=== PATIENT | male | born 1950 | race Caucasian/White ===

== ENCOUNTER → 2019-09-22 | Outpatient (CLI) | payer MEDICARE, BC, SELFPAY | PROVIDERS: Family Provider Family Medicine; PCP Family Medicine; Visit Provider Family Medicine | DX: M47.816 Spondylosis without myelopathy or radiculopathy, lumbar region (principal); M54.41 Lumbago with sciatica, right side | CPT/HCPCS: 72100 ==

== ENCOUNTER 2019-12-15 16:09 | Outpatient (CLI) | payer MEDICARE, BC, SELFPAY ==
--- NOTE | 2019-12-15 16:30 | USCV_ITS ---
Itz Wang Age: 68 Gender: M : 1950 Exam Date: 12/15/2019 16:35 Ordering Phys: Shelbie Bradshaw Technologist: Ingrid Woodard Exam Location: [facility] [place] Indication: sob BP: / HR: 69 Rhythm: Sinus Technical Quality: Adequate MEASUREMENTS (Male / Female) Normal Values 2D ECHO LV Diastolic Diameter PLAX 4.2 cm 4.2 - 5.9 / 3.9 - 5.3 cm LV Systolic Diameter PLAX 3.1 cm IVS Diastolic Thickness 1.1 cm 0.6 - 1.0 / 0.6 - 0.9 cm IVS Systolic Thickness 1.5 cm LVPW Diastolic Thickness 0.9 cm 0.6 - 1.0 / 0.6 - 0.9 cm LVPW Systolic Thickness 1.1 cm LVOT Diameter 2.0 cm LV Ejection Fraction MOD 2C 65.2 % LV Ejection Fraction 2C AL 65.9 % LA Diameter 2.9 cm LA Width 3.1 cm LA Height 4.0 cm RA Width 3.4 cm RA Height 3.2 cm M-MODE LV Diastolic Diameter MM 5.0 cm 4.2 - 5.9 / 3.9 - 5.3 cm LV Systolic Diameter MM 3.4 cm LV Ejection Fraction MM Teich 59.0 % IVS Diastolic Thickness MM 0.7 cm 0.6 - 1.0 / 0.6 - 0.9 cm IVS Systolic Thickness MM 1.0 cm LVPW Diastolic Thickness MM 0.6 cm 0.6 - 1.0 / 0.6 - 0.9 cm LVPW Systolic Thickness MM 1.3 cm Aortic Annulus Diameter 3.6 cm LA Ao Ratio MM 0.8 MV E Point Septal Separation 1.0 cm DOPPLER AV Peak Velocity 104.0 cm/s LVOT Peak Velocity 92.0 cm/s AV Area Cont Eq vti 2.7 cm squared AV Area Cont Eq pk 2.8 cm squared MV Peak Velocity 73.0 cm/s MV Area PHT 3.1 cm squared Mitral E to A Ratio 0.7 MV E' Velocity 6.0 cm/s Mitral E to MV E' Ratio 9.1 Mitral E to LV E' Lateral Ratio 9.0 Mitral E to LV E' Septal Ratio 9.5 TR Peak Velocity 217.0 cm/s TR Peak Gradient 18.9 mmHg Right Atrial Pressure 3.0 mmHg Pulmonary Artery Systolic Pressu 21.8 mmHg PV Peak Velocity 87.0 cm/s RV Acceleration Time 0.2 s FINDINGS Left Ventricle Moderately increased left ventricular cavity size. Severely decreased left ventricular systolic function. Left ventricular ejection fraction is estimated at 35 %. There appeared to be mid to distal anterior septal apical akinesis suggestive of ischemic heart disease in LAD territory.Grade I/IV diastolic dysfunction (abnormal relaxation filling pattern), normal to mildly elevated filling pressures. Right Ventricle The right ventricle is normal in size and function. Right Atrium The right atrium is normal in size. Left Atrium The left atrium is normal in size. Mitral Valve Structurally normal mitral valve without significant stenosis or prolapse. There is no mitral regurgitation. Aortic Valve Structurally normal aortic valve without significant sclerosis or stenosis. There is no aortic regurgitation. Tricuspid Valve Structurally normal tricuspid valve without significant stenosis or regurgitation. Pulmonary artery systolic pressure is normal. Pulmonic Valve Mild pulmonary valve regurgitation. Pericardium Normal pericardium without effusion. Aorta Normal ascending aorta dimension. CONCLUSIONS 1-Moderately increased left ventricular cavity size. Severely decreased left ventricular systolic function. Left ventricular ejection fraction is estimated at 35 %. There appeared to be mid to distal anterior septal apical akinesis suggestive of ischemic heart disease in LAD territory.Grade I/IV diastolic dysfunction (abnormal relaxation filling pattern), normal to mildly elevated filling pressures. 2-Mild pulmonary valve regurgitation. 3-No significant valve abnormalities. 4-There is no pericardial effusion. 5-Pulmonary artery systolic pressure is within normal limits. 6-Right atrial pressure is around 5 mm of mercury. 7-There are no prior echocardiogram studies to compare. William Sanderson MD (Electronically Signed) Final Date: 15 December 2019 20:57 S
== END 2019-12-15 16:10 | disposition home or self-care (01) ==
LOC: US 16:17
PROVIDERS: Family Provider Family Medicine; PCP Family Medicine; Visit Provider Nurse Practitioner Family
DX: I25.10 Atherosclerotic heart disease of native coronary artery without angina pectoris (principal); I37.1 Nonrheumatic pulmonary valve insufficiency
CPT/HCPCS: 93306

== ENCOUNTER → 2020-02-27 08:26 | Outpatient (BNVA) | payer MEDICARE, BC, SELFPAY | PROVIDERS: Family Provider Family Medicine; PCP Family Medicine; Visit Provider Family Medicine | DX: E78.2 Mixed hyperlipidemia (principal); J45.40 Moderate persistent asthma, uncomplicated | CPT/HCPCS: 80053; 80061 ==

== ENCOUNTER → 2020-06-08 16:24 | Outpatient (BNVA) | payer MEDICARE, BC, SELFPAY | PROVIDERS: Family Provider Family Medicine; PCP Family Medicine; Visit Provider Family Medicine | DX: Z20.828 Contact with and (suspected) exposure to other viral communicable diseases (principal) | CPT/HCPCS: 87635 ==

== ENCOUNTER → 2021-05-09 12:09 | Outpatient (BNVA) | payer MEDICARE, BC, SELFPAY | PROVIDERS: Family Provider Family Medicine; PCP Family Medicine; Visit Provider Family Medicine | DX: Z20.822 Contact with and (suspected) exposure to COVID-19 (principal); R05 Cough; R50.9 Fever, unspecified | CPT/HCPCS: 87635 ==

== ENCOUNTER 2021-11-01 03:59 | Emergency (ER) | payer MEDICARE, BC, SELFPAY ==
--- NOTE | 2021-11-01 04:01 | XRR_ITS ---
PROCEDURE INFORMATION: Exam: XR Chest Exam date and time: 11/01/2021 4:01 AM Age: 70 years old Clinical indication: Pain; On breathing; Additional info: Cp TECHNIQUE: Imaging protocol: XR of the chest. Views: 1 view. Total images: 1 COMPARISON: No relevant prior studies available. FINDINGS: Lungs: Unremarkable. No consolidation. Pleural spaces: Unremarkable. No pleural effusion. No pneumothorax. Heart/Mediastinum: Unremarkable. No cardiomegaly. Bones/joints: Unremarkable. XR/XR chest 1V portable [id number] IMPRESSION: No acute findings.
--- NOTE | 2021-11-01 04:01 | ECG_ITS ---
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 Measurements Intervals [place] Rate: 72 P: 82 UT: 189 QRS: -40 QRSD: 86 T: 83 QT: 408 QTc: 448 Interpretive Statements SINUS RHYTHM LEFT AXIS DEVIATION [QRS AXIS < -30] ANTEROSEPTAL MYOCARDIAL INFARCTION , PROBABLY OLD No previous ECG available for comparison Electronically Signed On 11-01-2021 17:11:10 [employer]APPER [employer] BUFFER by Ariel Forrest M.D. [email or web address]/store/[id number]
[2021-11-01 04:07] VITALS: BP 145/85; PULSE 70; RESP 18; TEMP 36.4; O2SAT 98; BMI 23.3
--- NOTE | 2021-11-01 04:11 | W.ED.CHESTPA ---
Documented by User: Erika Palomino MD 11/01/21 04:14 HPI - Chest Pain General: Chief Complaint: Chest Pain Stated Complaint: chest pain Time Seen by Provider: 11/01/21 04:03 Source: patient Mode of arrival: ambulatory Limitations: no limitations History of Present Illness: 70-year-old male who states that he woke up started having some chest pain roughly 45 minutes ago. He states that was a heartburn type pain he said that was cramping in his chest but had some radiation to his left arm. He does have a history of a heart attack and stent placed 20 years ago but has had no issues since then. He denies any shortness of breath denies any nausea or diaphoresis denies any worsening proving factor states that it is improved greatly is currently 2 out of 10. Associated symptoms: Deny abdominal pain, dyspnea, fever(s), nausea or vomiting Review of Systems Const: Denies: fever(s), chills, body aches or change in appetite Eyes: Denies: blurry vision or eye discomfort ENMT: Denies: throat pain or dental pain Card: Denies: chest pain Resp: Denies: dyspnea GI: Denies: abdominal pain, nausea, vomiting or diarrhea : Denies: dysuria Musc: Denies: neck pain or back pain Skin/Breast: Denies: rash Neuro: Denies: headache(s) Psych: Denies: depression Xu/Lymph: Denies: easy bruising All/Imm: Denies: urticaria PFSH ED PFSH: Medical History Asthma Asthma exacerbation 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 History of Mohs micrographic surgery for skin cancer HTN (hypertension) Hyperlipidemia Ischemic cardiomyopathy Myocardial infarction Surgical History H/O hernia repair H/O vasectomy History of heart artery stent Family History Grandfather CAD (coronary artery disease) Diabetes Hypertension Family/Other Cancer Father Family history of premature coronary artery disease Lung disease Hypertension Grandmother Hypertension Lung disease Stroke Other Hyperlipidemia Denies family history of Clotting disorder Dementia Psychiatric illness Chronic kidney disease (CKD) Suicide Anesthesia complication Bleeding disorder Social History Smoking and tobacco status: never smoked Alcohol intake: never Physical Exam Const: COMMON NORMALS: no acute distress, patient oriented x3 and healthy appearing HENMT: COMMON NORMALS: normocephalic and atraumatic HEAD & SCALP: normocephalic and atraumatic Eye: COMMON NORMALS: Equal, round and reactive pupils present and EOMs intact bilaterally PUPIL: Yes Equal, round and reactive pupils present Neck/C-Spine: COMMON NORMALS: full ROM and supple Chest: COMMONS NORMALS: normal inspection of the chest and normal palpation of entire chest wall Resp: COMMON NORMALS: normal respiratory effort, No retractions, No use of accessory muscles and clear to auscultation bilaterally AUSCULTATION: clear to auscultation bilaterally Cardio: COMMON NORMALS: regular rate, regular rhythm and No murmurs present (Cardio) RATE: regular rate RHYTHM: regular rhythm GI: COMMON NORMALS: Normal to inspection, nondistended, normoactive bowel sounds present, Soft to palpation, non-tender and no masses PALPATION: Yes Soft to palpation Extremity: COMMON NORMALS: normal to inspection and full ROM Neuro: COMMON NORMALS: patient oriented x3, moves all extremities and no focal motor deficits Psych: COMMON NORMALS: mental status grossly normal, Normal thought process present and cooperative THOUGHT PROCESS: Normal thought process present Skin: COMMON NORMALS: no rashes or lesions noted and no wounds GENERAL SKIN EXAM: no rashes or lesions noted Course Vital Signs: Vital signs: Vital Signs Temperature 97.5 F L 11/01/21 04:07 Pulse Rate 66 11/01/21 06:58 Respiratory Rate 14 11/01/21 06:58 Blood Pressure 121/65 11/01/21 06:58 Pulse Oximetry 96 11/01/21 06:58 MDM - Chest Pain Lab Data : 11/01/21 04:07 11/01/21 04:07 Radiology Impressions Chest X-Ray 11/01/21 04:01 IMPRESSION: No acute findings. Laboratory Results WBC 9.8 10^3/uL (4.0-10.0) 11/01/21 04:07 RBC 5.24 10^6/uL (4.1-5.3) 11/01/21 04:07 Hgb 15.3 g/dL (11.7-16.6) 11/01/21 04:07 Hct 47.9 % (42.0-52.0) 11/01/21 04:07 MCV 91.4 fl (80-94) 11/01/21 04:07 MCH 29.2 pg (28.0-34.0) 11/01/21 04:07 MCHC 31.9 g/dL (30.0-36.0) 11/01/21 04:07 RDW 13.6 % (12.1-15.1) 11/01/21 04:07 Plt Count 179 10^3/cmm (130-400) 11/01/21 04:07 MPV 9.9 fL (7.4-10.4) 11/01/21 04:07 Neut % (Auto) 58.4 % 11/01/21 04:07 Lymph % (Auto) 23.3 % 11/01/21 04:07 [place] % (Auto) 12.6 % 11/01/21 04:07 Eos % (Auto) 4.2 % 11/01/21 04:07 Baso % (Auto) 0.4 % 11/01/21 04:07 Neut # (Auto) 5.70 10^3/uL (1.8-7.7) 11/01/21 04:07 Lymph # (Auto) 2.3 10^3/uL (0.8-4.8) 11/01/21 04:07 [place] # (Auto) 1.2 10^3/uL (0.2-0.9) H 11/01/21 04:07 Eos # (Auto) 0.4 10^3/uL (0.0-0.8) 11/01/21 04:07 Baso # (Auto) 0.0 10^3/uL (0.0-0.1) 11/01/21 04:07 Nucleated RBC % (auto) 0 % 11/01/21 04:07 Nucleated RBCs # 0.0 /100WBC 11/01/21 04:07 Sodium 141 mmol/L (136-145) 11/01/21 04:07 Potassium 4.1 mmol/L (3.5-5.1) 11/01/21 04:07 Chloride 105 mmol/L (98-107) 11/01/21 04:07 Carbon Dioxide 25 mmol/L (22-29) 11/01/21 04:07 Anion Gap 15.1 (5-19) 11/01/21 04:07 BUN 18 mg/dL (8-23) 11/01/21 04:07 Creatinine 1.1 mg/dL (0.7-1.2) 11/01/21 04:07 GFR Calculation Not Reportable 11/01/21 04:07 Glucose 110 mg/dL (65-115) 11/01/21 04:07 Calculated Osmolality 295 mOsm/kg (285-295) 11/01/21 04:07 Calcium 8.7 mg/dL (8.5-10.5) 11/01/21 04:07 Total Bilirubin 0.4 mg/dL (0.15-1.2) 11/01/21 04:07 AST 21 U/L (0-40) 11/01/21 04:07 ALT 23 U/L (0-41) 11/01/21 04:07 Alkaline Phosphatase 89 IU/L (40-130) 11/01/21 04:07 Troponin T Baseline 15 ng/L (0-15) 11/01/21 04:07 Troponin T 120 Minute 13.38 ng/L (0-15) 11/01/21 06:05 Total Protein 6.0 g/dL (6.6-8.7) L 11/01/21 04:07 Albumin 4.8 g/dL (3.5-5.2) 11/01/21 04:07 Globulin 1.2 g/dL (1.3-4.6) L 11/01/21 04:07 EKG Data EKG 1: I personally reviewed and interpreted this EKG as follows: EKG interpretation date: 11/01/21 EKG interpretation time: 04:04 Interpretation: nsr hr [address] or t wave abnormalities qrs 86 qtc 432 Discharge Plan Discharge Patient Disposition: Home Clinical Impression: Atypical chest pain, Ischemic cardiomyopathy Condition: Stable Prescriptions: New nitroglycerin 0.4 mg tablet, sublingual 0.4 mg sublingual Q5M PRN (Reason: chest pain) Qty: 30 0RF Rx Instructions: do not exceed 3 doses per episode No Action prednisone 20 mg tablet 60 mg PO DAILY Qty: 15 0RF aspirin [Adult Aspirin Regimen] 81 mg tablet,delayed release (DR/EC) 81 mg PO DAILY 0RF metoprolol succinate 50 mg tablet extended release 24 hr 50 mg PO DAILY 90 Days Qty: 90 3RF losartan 25 mg tablet 25 mg PO DAILY Qty: 90 3RF albuterol sulfate [Ventolin HFA] 90 mcg/actuation HFA aerosol inhaler 2 puff INHALATION Q6H PRN (Reason: shortness of breath or wheezing) Qty: 8.5 2RF albuterol sulfate 2.5 mg /3 mL (0.083 %) solution for nebulization 2.5 mg INHALATION Q4H PRN (Reason: shortness of breath or wheezing) Qty: 180 3RF fluticasone propion-salmeterol 500-50 mcg/dose blister with device 1 inh INHALATION BID Qty: 60 3RF atorvastatin 40 mg tablet 40 mg PO .AT BEDTIME Qty: 90 3RF Discharge Orders: Discharge ED (Routine); Ordered 11/01/21 Ordered By: Floyd Li Referrals: Nicol Martin DO [Primary Care Provider] - Discharge Activity: Limit activity as instructed Patient Instructions: Opioid Safety Activity Restrictions/Additional Instructions: Avoid any exertional activity. cytogenetics laboratory manager will make arrangements for you to have a Lexiscan sestamibi stress test and to follow-up with cardiology. Return if you have further problems. Sign Out Sign Out Data: Patient Sign Out occurred on 11/01/21 at 07:18. Patient's care was discussed, and care was transferred from to Floyd Li DO. 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 History of Mohs micrographic surgery for skin cancer HTN (hypertension) Hyperlipidemia Ischemic cardiomyopathy Myocardial infarction Surgical History H/O hernia repair H/O vasectomy History of heart artery stent Family History Grandfather CAD (coronary artery disease) Diabetes Hypertension Family/Other Cancer Father Family history of premature coronary artery disease Lung disease Hypertension Grandmother Hypertension Lung disease Stroke Other Hyperlipidemia Denies family history of Clotting disorder Dementia Psychiatric illness Chronic kidney disease (CKD) Suicide Anesthesia complication Bleeding disorder Social History Smoking and tobacco status: never smoked Alcohol intake: never Course Vital Signs: Vital signs: Vital Signs Temperature 97.5 F L 11/01/21 04:07 Pulse Rate 66 11/01/21 06:58 Respiratory Rate 14 11/01/21 06:58 Blood Pressure 121/65 11/01/21 06:58 Pulse Oximetry 96 11/01/21 06:58 MDM - Chest Pain Medical Decision Making Care assumed a change of shift to Dr. Palomino. EKG the computer is reading is acute NH believe it is repull in leads V1, II and III patient is not having any chest pain at this time a second troponin is actually decreased. Think he can be safely discharged home we will discharge him home have him continue to take his aspirin daily set him up for an outpatient Lexiscan sestamibi stress test give him sublingual nitro to use as needed we will have him follow-up with cardiology after the stress test is completed. Return if has further problems. Medical Records I reviewed the patient's medical records. Lab Data I reviewed the patient's lab results. : 11/01/21 04:07 11/01/21 04:07 Radiology Impressions Chest X-Ray 11/01/21 04:01 IMPRESSION: No acute findings. Laboratory Results WBC 9.8 10^3/uL (4.0-10.0) 11/01/21 04:07 RBC 5.24 10^6/uL (4.1-5.3) 11/01/21 04:07 Hgb 15.3 g/dL (11.7-16.6) 11/01/21 04:07 Hct 47.9 % (42.0-52.0) 11/01/21 04:07 MCV 91.4 fl (80-94) 11/01/21 04:07 MCH 29.2 pg (28.0-34.0) 11/01/21 04:07 MCHC 31.9 g/dL (30.0-36.0) 11/01/21 04:07 RDW 13.6 % (12.1-15.1) 11/01/21 04:07 Plt Count 179 10^3/cmm (130-400) 11/01/21 04:07 MPV 9.9 fL (7.4-10.4) 11/01/21 04:07 Neut % (Auto) 58.4 % 11/01/21 04:07 Lymph % (Auto) 23.3 % 11/01/21 04:07 [place] % (Auto) 12.6 % 11/01/21 04:07 Eos % (Auto) 4.2 % 11/01/21 04:07 Baso % (Auto) 0.4 % 11/01/21 04:07 Neut # (Auto) 5.70 10^3/uL (1.8-7.7) 11/01/21 04:07 Lymph # (Auto) 2.3 10^3/uL (0.8-4.8) 11/01/21 04:07 [place] # (Auto) 1.2 10^3/uL (0.2-0.9) H 11/01/21 04:07 Eos # (Auto) 0.4 10^3/uL (0.0-0.8) 11/01/21 04:07 Baso # (Auto) 0.0 10^3/uL (0.0-0.1) 11/01/21 04:07 Nucleated RBC % (auto) 0 % 11/01/21 04:07 Nucleated RBCs # 0.0 /100WBC 11/01/21 04:07 Sodium 141 mmol/L (136-145) 11/01/21 04:07 Potassium 4.1 mmol/L (3.5-5.1) 11/01/21 04:07 Chloride 105 mmol/L (98-107) 11/01/21 04:07 Carbon Dioxide 25 mmol/L (22-29) 11/01/21 04:07 Anion Gap 15.1 (5-19) 11/01/21 04:07 BUN 18 mg/dL (8-23) 11/01/21 04:07 Creatinine 1.1 mg/dL (0.7-1.2) 11/01/21 04:07 GFR Calculation Not Reportable 11/01/21 04:07 Glucose 110 mg/dL (65-115) 11/01/21 04:07 Calculated Osmolality 295 mOsm/kg (285-295) 11/01/21 04:07 Calcium 8.7 mg/dL (8.5-10.5) 11/01/21 04:07 Total Bilirubin 0.4 mg/dL (0.15-1.2) 11/01/21 04:07 AST 21 U/L (0-40) 11/01/21 04:07 ALT 23 U/L (0-41) 11/01/21 04:07 Alkaline Phosphatase 89 IU/L (40-130) 11/01/21 04:07 Troponin T Baseline 15 ng/L (0-15) 11/01/21 04:07 Troponin T 120 Minute 13.38 ng/L (0-15) 11/01/21 06:05 Total Protein 6.0 g/dL (6.6-8.7) L 11/01/21 04:07 Albumin 4.8 g/dL (3.5-5.2) 11/01/21 04:07 Globulin 1.2 g/dL (1.3-4.6) L 11/01/21 04:07 Discharge Plan Discharge Patient Disposition: Home Clinical Impression: Atypical chest pain, Ischemic cardiomyopathy Condition: Stable Prescriptions: New nitroglycerin 0.4 mg tablet, sublingual 0.4 mg sublingual Q5M PRN (Reason: chest pain) Qty: 30 0RF Rx Instructions: do not exceed 3 doses per episode No Action prednisone 20 mg tablet 60 mg PO DAILY Qty: 15 0RF aspirin [Adult Aspirin Regimen] 81 mg tablet,delayed release (DR/EC) 81 mg PO DAILY 0RF metoprolol succinate 50 mg tablet extended release 24 hr 50 mg PO DAILY 90 Days Qty: 90 3RF losartan 25 mg tablet 25 mg PO DAILY Qty: 90 3RF albuterol sulfate [Ventolin HFA] 90 mcg/actuation HFA aerosol inhaler 2 puff INHALATION Q6H PRN (Reason: shortness of breath or wheezing) Qty: 8.5 2RF albuterol sulfate 2.5 mg /3 mL (0.083 %) solution for nebulization 2.5 mg INHALATION Q4H PRN (Reason: shortness of breath or wheezing) Qty: 180 3RF fluticasone propion-salmeterol 500-50 mcg/dose blister with device 1 inh INHALATION BID Qty: 60 3RF atorvastatin 40 mg tablet 40 mg PO .AT BEDTIME Qty: 90 3RF Discharge Orders: Discharge ED (Routine); Ordered 11/01/21 Ordered By: Floyd Li Referrals: Nicol Martin DO [Primary Care Provider] - Discharge Activity: Limit activity as instructed Patient Instructions: Opioid Safety Activity Restrictions/Additional Instructions: Avoid any exertional activity. cytogenetics laboratory manager will make arrangements for you to have a Lexiscan sestamibi stress test and to follow-up with cardiology. Return if you have further problems. Sign Out Sign Out Data: Patient Sign Out occurred on 11/01/21 at 07:18. Patient's care was discussed, and care was transferred from to Floyd Li DO. Coding Level of Care Code ED Lab Director for Héctorg Fwd Exam Comprehensive
[2021-11-01 04:17] LABS: Hematocrit 47.9 % (42.0-52.0); Hemoglobin 15.3 g/dL (11.7-16.6); Mean Corpuscular Hemoglobin 29.2 pg (28.0-34.0); Mean Corpuscular Volume 91.4 fl (80-94); Red Blood Count 5.24 10^6/uL (4.1-5.3); White Blood Count 9.8 10^3/uL (4.0-10.0)
[2021-11-01 04:18] LABS: Basophils % 0.4 %; Eosinophils # 0.4 10^3/uL (0.0-0.8); Eosinophils % 4.2 %; Lymphocytes # 2.3 10^3/uL (0.8-4.8); Lymphocytes % 23.3 %; Mean Corpuscular HGB Conc 31.9 g/dL (30.0-36.0); Mean Platelet Volume 9.9 fL (7.4-10.4); Monocytes # 1.2 10^3/uL (0.2-0.9); Monocytes % 12.6 %; Neutrophils % 58.4 %; Nucleated Red Blood Cells % 0 %; Platelet Count 179 10^3/cmm (130-400); Red Cell Distribution Width 13.6 % (12.1-15.1)
[2021-11-01] MEDS: aspirin 81 mg Chew Tablet 324 MG PO (04:22)
[2021-11-01] MEDS: nitroglycerin 0.4 mg sublingual Tablet SUBLINGUAL (04:22)
[2021-11-01 04:35] LABS: Troponin(5th) Baseline 15 ng/L (0-15)
[2021-11-01 04:37] LABS: Alanine Aminotransferase 23 U/L (0-41); Albumin Level 4.8 g/dL (3.5-5.2); Alkaline Phosphatase 89 IU/L (40-130); Anion Gap 15.1 (5-19); Aspartate Amino Transferase 21 U/L (0-40); Blood Urea Nitrogen 18 mg/dL (8-23); Calcium 8.7 mg/dL (8.5-10.5); Carbon Dioxide 25 mmol/L (22-29); Chloride 105 mmol/L (98-107); Globulin 1.2 g/dL (1.3-4.6); Glucose 110 mg/dL (65-115); Osmolality Calculated 295 mOsm/kg (285-295); Potassium 4.1 mmol/L (3.5-5.1); Sodium 141 mmol/L (136-145); Total Bilirubin 0.4 mg/dL (0.15-1.2)
--- NOTE | 2021-11-01 06:01 | ECG_ITS ---
[facility] Test Date: 2021-11-01 Pat Name: Itz Wang Department: Room: Gender: Male Flash Developer: : 1950 Requested By: Erika Palomino Order Number: [id number] Neelam MD: Ariel Forrest M.D. Measurements Intervals [place] Rate: 56 P: 73 MS: 190 QRS: -48 QRSD: 90 T: 75 QT: 440 QTc: 425 Interpretive Statements SINUS BRADYCARDIA LEFT AXIS DEVIATION [QRS AXIS < -30] Compared to ECG 11/01/2021 04:04:37 Sinus rhythm no longer present Myocardial infarct finding still present Electronically Signed On 11-01-2021 20:56:53 LAUNDRY LABORER by Ariel Forrest M.D. [id number]
[2021-11-01 06:58] VITALS: BP 121/65; PULSE 66; RESP 14; O2SAT 96
[2021-11-01 07:09] LABS: Troponin 5 2HR 13.38 ng/L (0-15)
[2021-11-01 07:26] VITALS: BP 136/75; PULSE 67; RESP 15; O2SAT 96
[2021-11-01 07:45] VITALS: BP 136/75; PULSE 67; RESP 15; TEMP 36.4; O2SAT 96
[2021-11-01 07:51] LABS: Troponin 5 2HR Delta -1.62 ABS# (0-10)
--- NOTE | 2021-11-01 09:28 | DCPLANNER ---
Addendum entered by Duyen Chen 12/08/21 09:17: Patient had a an outpatient stress test scheduled for 12.08.21 - patient did attend appointment. Addendum entered by Duyen Chen 11/04/21 09:15: Patient had a follow up appointment scheduled for 11.02.21 with [facility] - patient did attend appointment. Addendum entered by Duyen Chen 11/01/21 12:30: barn and property manager had message to schedule a follow up appointment for patient with [facility]. barn and property manager called [facility], spoke with Patito, gave clinic patients information. A follow up appointment was scheduled for Tuesday, November 02, 2021 at 12:[address] De Leon. Patient is aware of appointment. Original Note: barn and property manager had message to schedule an outpatient stress test for patient. barn and property manager faxed signed order to centralized scheduling, who will call patient with appointment information.
== END 2021-11-01 07:40 | disposition home or self-care (01) ==
PROVIDERS: Emergency Medicine; Emergency Provider Family Medicine; PCP Family Medicine
DX: R07.89 Other chest pain (principal); I25.5 Ischemic cardiomyopathy; Z79.82 Long term (current) use of aspirin; I10 Essential (primary) hypertension; E78.5 Hyperlipidemia, unspecified; I25.2 Old myocardial infarction
CPT/HCPCS: 36415; 71045; 80053; 84484; 85025; 93005; 99284

== ENCOUNTER 2021-12-07 06:11 | Outpatient (CLI) | payer MEDICARE, BC, SELFPAY ==
--- NOTE | 2021-12-07 06:15 | USCV_ITS ---
Itz Wang Age: 70 Gender: M : 1950 Exam Date: 12/07/2021 06:20 Ordering Phys: Ariel Forrest M.D ([email or web address]) Technologist: Exam [place] [facility] [place] Indication: hx of mi BP: 122 / 72 HR: 73 Rhythm: Sinus Technical Quality: Adequate MEASUREMENTS (Male / Female) Normal Values 2D ECHO LV Diastolic Diameter PLAX 3.7 cm 4.2 - 5.9 / 3.9 - 5.3 cm LV Systolic Diameter PLAX 3.7 cm IVS Diastolic Thickness 0.7 cm 0.6 - 1.0 / 0.6 - 0.9 cm IVS Systolic Thickness 0.8 cm LVPW Diastolic Thickness 1.1 cm 0.6 - 1.0 / 0.6 - 0.9 cm LVPW Systolic Thickness 1.0 cm LVOT Diameter 2.0 cm LV Ejection Fraction 2D Teich 12.6 % LV Ejection Fraction MOD 2C 47.4 % LV Ejection Fraction 2C AL 46.0 % LA Diameter 3.9 cm Aorta at Sinotubular Diameter 3.2 cm M-MODE Aortic Annulus Diameter 3.9 cm LA Ao Ratio MM 0.9 MV E Point Septal Separation 0.5 cm DOPPLER AV Peak Velocity 82.0 cm/s LVOT Peak Velocity 81.0 cm/s AV Area Cont Eq vti 3.1 cm squared AV Area Cont Eq pk 3.3 cm squared MV Area PHT 5.0 cm squared Mitral E to A Ratio 0.9 MV E' Velocity 33.0 cm/s Mitral E to MV E' Ratio 11.7 Mitral E to LV E' Lateral Ratio 10.5 Mitral E to LV E' Septal Ratio 13.6 TR Peak Velocity 210.0 cm/s TR Peak Gradient 17.6 mmHg TV Peak E Velocity 82.0 cm/s Right Atrial Pressure 3.0 mmHg Pulmonary Artery Systolic Pressu 20.6 mmHg PV Peak Velocity 92.0 cm/s FINDINGS Left Ventricle Normal left ventricular size. LV systolic function is severely reduced with EF of 30-35%. Moderate to severe hypokinesis of apical, mid to apical anteroseptal and inferoseptal soares. Grade 1 diastolic dysfunction Right Ventricle The right ventricle is normal in size and function. Right Atrium The right atrium is normal in size. Left Atrium The left atrium is normal in size. Mitral Valve Structurally normal mitral valve without significant stenosis or prolapse. There is mild mitral regurgitation. Aortic Valve Structurally normal aortic valve without significant sclerosis or stenosis. There is mild aortic regurgitation. Tricuspid Valve Structurally normal tricuspid valve without significant stenosis or regurgitation. Insufficient TR jet to calculate RVSP Pulmonic Valve Structurally normal pulmonic valve without significant stenosis. There is trace pulmonic regurgitation. Pericardium Normal pericardium without effusion. Aorta Normal ascending aorta dimension. CONCLUSIONS LV systolic function is severely reduced with EF of 30-35%. Moderate to severe hypokinesis of apical, mid to apical anteroseptal and inferoseptal soares. Grade 1 diastolic dysfunction Mild mitral regurgitation Mild aortic regurgitation. Trace pulmonic regurgitation Compared to prior echocardiogram from 12/15/2019, no significant change are seen Ariel Forrest MD (Electronically Signed) Final Date: 20 December 2021 12:04 S
== END 2021-12-07 06:12 | disposition home or self-care (01) ==
LOC: RAD 06:12
PROVIDERS: PCP Family Medicine; Visit Provider Internal Medicine
DX: R07.9 Chest pain, unspecified (principal); I51.7 Cardiomegaly
CPT/HCPCS: 93306

== ENCOUNTER 2021-12-08 07:44 | Outpatient (CLI) | payer MEDICARE, BC, SELFPAY ==
[2021-12-08 08:11] VITALS: BMI 23.8
--- NOTE | 2021-12-08 08:11 | ECG_ITS ---
[facility] Test Date: 2021-12-08 Pat Name: Itz Wang Department: Room: Gender: Male Copyman: Tatum Ridre : 1950 Requested By: Floyd Akbar Order Number: [id number] Neelam MD: Racquel Alcantar M.D. Interpretive Statements NAME OF STUDY: LEXISCAN SESTAMIBI STRESS TEST INDICATION: Atypical Chest Pain,/ SEND RESULTS TO ANNALISA ALVARADO PROCEDURE: At the baseline, the EKG revealed sinus bradycardia with a rate of 59 bpm. Poor R wave progression. Possible old septal myocardial infarction. Minimal left axis deviation. Nonspecific T wave changes in the high lateral leads.. The baseline blood pressure was 134/81 mm Hg with a heart rate of 59 beats/min. Lexiscan was infused over a period of 20 seconds. A total of 0.4 milligrams of Lexiscan was infused. The stress phase was continued for a total of 5 minutes. Heart rate at the end of the stress phase was 85 with a blood pressure 140/84. The EKG at the peak infusion revealed no significant changes. Sestamibi was injected 20 seconds after the Lexiscan infusion. Blood pressure at the end of the recovery phase was 145/86 with a heart rate of 87 per minute. CONCLUSION: 1. No significant EKG changes with the LexiScan infusion 2. No LexiScan induced chest pain or cardiac arrhythmia 3. Normal blood pressure and heart rate response 4. Sestamibi/sestamibi perfusion scan pending; see separate report. Electronically Signed On 12-10-2021 13:43:44 CDT by Racquel Alcantar M.D. [id number]
--- NOTE | 2021-12-08 08:11 | NMCV_ITS ---
NM wallace perf SPECT r/s* [id number] Itz Wang Age: 70 Gender: M : 1950 Exam Date: 12/08/2021 09:14 Ordering Phys: Floyd Li DO Technologist: MARY Mansfield Exam Location: [facility] Indications: CHEST PAIN STRESS TEST Please [facility] IMAGE PROTOCOL Rest/Stress 1 Lexiscan Day Radiopharmaceutical Dose (mCi) Administration Site Administered by Rest: Tc-99m 10.6 IV MARY Joya Sestamibi Stress:Tc-99m 32.5 IV MARY Joya Sestamibi Rest: 08-Dec-2021 60 Discovery 630 Stress: 08-Dec-2021 30 Discovery 630 0.4mg Lexiscan. Images obtained in supine and prone position. SPECT RESULTS Technical Quality: Excellent Raw Data Analysis: Normal Image Corrections: No attenuation or motion correction applied Summed Stress Score: 27 Summed Rest Score: 25 Summed Difference Score: 3 PERFUSION FINDINGS Moderate to large area of severely decreased tracer uptake in the mid and apical anterior, mid anteroseptal, mid inferoseptal, basal and mid inferior and all the apical segments. Subtle areas reversibility was noted in the distribution of all the 3 arteries. FUNCTIONAL RESULTS (calculated via Gated SPECT) Stress Image LV EF (%): 39 Stress EDV (mL):127 TID: 1.06 Stress ESV (mL):77 FUNCTIONAL FINDINGS: LV wall motion analysis revealed severe diffuse hypokinesia of the septum and dyskinetic apex. IMPRESSIONS 1. Myocardial perfusion imaging revealing moderate to large area of persistent decreased tracer uptake in the anterior, anteroseptal, inferoseptal and inferior wall regions with a subtle area reversibility in the distribution of all the 3 arteries, suggesting extensive myocardial scarring in the distribution of the left artery descending artery and the right coronary artery predominantly with subtle areas of possible gamaliel-infarction ischemia in all the 3 coronary artery territories 2. Diminished LV ejection fraction of 39%. 3. Multiple wall motion abnormalities as mentioned above. 4. Mildly dilated LV cavity with an end-systolic volume of 77 mL. No similar previous studies are available for comparison Dr Racquel Alcantar MD [facility] (Electronically Signed) Final Date: 08 December 2021 13:45 S
[2021-12-08] MEDS: regadenoson 0.4 Mg/5 ml Syringe IVP (09:41)
[2021-12-08 09:51] VITALS: BP 145/86; PULSE 84
== END 2021-12-08 07:45 | disposition home or self-care (01) ==
PROVIDERS: PCP Family Medicine; Visit Provider Family Medicine
DX: R07.89 Other chest pain (principal)
CPT/HCPCS: 78452; 93017; A9500; J2785

== ENCOUNTER → 2022-03-08 14:49 | Outpatient (BNVA) | payer MEDICARE, BC, SELFPAY | PROVIDERS: PCP Family Medicine; Visit Provider Internal Medicine | DX: I25.10 Atherosclerotic heart disease of native coronary artery without angina pectoris (principal); I25.2 Old myocardial infarction; I25.5 Ischemic cardiomyopathy; I10 Essential (primary) hypertension; E78.5 Hyperlipidemia, unspecified | CPT/HCPCS: 99214 ==

== ENCOUNTER → 2022-09-28 15:19 | Outpatient (BNVA) | payer MEDICARE, BC, SELFPAY | PROVIDERS: PCP Family Medicine; Visit Provider Nurse Practitioner Family | DX: I25.10 Atherosclerotic heart disease of native coronary artery without angina pectoris (principal); I10 Essential (primary) hypertension; I25.5 Ischemic cardiomyopathy; I25.2 Old myocardial infarction | CPT/HCPCS: 99214 ==

== ENCOUNTER → 2022-10-02 09:45 | Outpatient (BNVA) | payer MEDICARE, BC, SELFPAY | PROVIDERS: PCP Family Medicine; Visit Provider Family Medicine | DX: I10 Essential (primary) hypertension (principal); R35.1 Nocturia; E78.2 Mixed hyperlipidemia | CPT/HCPCS: 80053; 80061; 82043; 84153; 85025 ==

== ENCOUNTER 2022-11-20 14:23 | Outpatient (CLI) | payer MEDICARE, BC, SELFPAY ==
--- NOTE | 2022-11-20 14:30 | XR_ITS ---
WS: [id number] SCREENING DEXA SCAN [employer] CLINICAL INFORMATION: chronic steroid use COMPARISON: None. FINDINGS: The L1-L4 bone mineral density measures 1.090 g/cm2. This corresponds to a T score score of -1.1 and Z score of -0.1. Left femoral neck bone mineral density measures 0.912 g/cm2. This corresponds to a T score of -1.3 an d Z score of -0.3. Right femoral neck bone mineral density measures 0.886 g/cm2. This corresponds to a T score -1.5of an d Z score of -0.4. Mean femoral neck bone mineral density measures 0.899 g/cm2. This corresponds to a T score of -1.4 an d Z score of -0.3. XR/XR DEXA axial skeleton* [id number] IMPRESSION: Osteopenia lumbar spine. Osteopenia femoral necks. Patient's FRAX calculated 10 year probability for major osteoporotic fracture i s 10.7 % and osteoporotic hip fracture is 4.3%.
== END 2022-11-20 14:24 | disposition home or self-care (01) ==
PROVIDERS: PCP Family Medicine; Visit Provider Family Medicine
DX: Z79.899 Other long term (current) drug therapy (principal); Z79.52 Long term (current) use of systemic steroids; M85.89 Other specified disorders of bone density and structure, multiple sites
CPT/HCPCS: 77080

== ENCOUNTER → 2023-02-22 08:05 | Outpatient (BNVA) | payer MEDICARE, BC, SELFPAY | PROVIDERS: PCP Family Medicine; Visit Provider Dermatology | DX: C44.319 Basal cell carcinoma of skin of other parts of face (principal) | CPT/HCPCS: 12052; 17311 ==

== ENCOUNTER → 2023-04-16 13:56 | Outpatient (BNVA) | payer MEDICARE, BC, SELFPAY | PROVIDERS: PCP Family Medicine; Visit Provider Internal Medicine | DX: I25.10 Atherosclerotic heart disease of native coronary artery without angina pectoris (principal); I25.2 Old myocardial infarction; I25.5 Ischemic cardiomyopathy; I10 Essential (primary) hypertension; E78.2 Mixed hyperlipidemia | CPT/HCPCS: 99214 ==

== ENCOUNTER → 2023-07-19 08:33 | Outpatient (BNVA) | payer MEDICARE, BC, SELFPAY | PROVIDERS: PCP Family Medicine; Visit Provider Nurse Practitioner Family | DX: L57.0 Actinic keratosis (principal); L82.1 Other seborrheic keratosis; Z85.828 Personal history of other malignant neoplasm of skin; L57.8 Other skin changes due to chronic exposure to nonionizing radiation; D22.5 Melanocytic nevi of trunk | CPT/HCPCS: 17000; 99213 ==

== ENCOUNTER 2023-08-07 10:45 | Outpatient (CLI) | payer MEDICARE, BC, SELFPAY ==
[2023-08-07 10:25] VITALS: PULSE 66
[2023-08-07 11:20] VITALS: PULSE 66; RESP 18; O2SAT 98
[2023-08-07] MEDS: albuterol 2.5 mg/3 mL Neb INHALATION (11:20)
== END 2023-08-07 10:46 | disposition home or self-care (01) ==
PROVIDERS: PCP Family Medicine; Visit Provider Family Medicine
DX: J45.40 Moderate persistent asthma, uncomplicated (principal); R94.2 Abnormal results of pulmonary function studies
CPT/HCPCS: 94060; 94726; 94729; J7613

== ENCOUNTER 2023-09-28 07:00 | Outpatient (CLI) | payer MEDICARE, SELFPAY ==
--- NOTE | 2023-09-28 07:00 | USCV_ITS ---
Itz Wang Age: 72 Gender: M : 1950 Exam Date: 09/28/2023 07:19 Ordering Phys: Nicol Martin DO Technologist: Exam Location: [facility] [place] Indication: hx of mi ? chf BP: 130 / 80 HR: 71 Rhythm: Sinus Technical Quality: Adequate MEASUREMENTS (Male / Female) Normal Values 2D ECHO LV Diastolic Diameter PLAX 3.7 cm 4.2 - 5.9 / 3.9 - 5.3 cm LV Systolic Diameter PLAX 3.2 cm IVS Diastolic Thickness 1.2 cm 0.6 - 1.0 / 0.6 - 0.9 cm IVS Systolic Thickness 1.2 cm LVPW Diastolic Thickness 1.0 cm 0.6 - 1.0 / 0.6 - 0.9 cm LVPW Systolic Thickness 1.5 cm LVOT Diameter 2.1 cm LV Ejection Fraction 2D Teich 31.9 % LV Ejection Fraction MOD 2C 50.3 % LV Ejection Fraction 2C AL 49.6 % LA Diameter 3.9 cm IVC Diameter 1.9 cm M-MODE Aortic Annulus Diameter 4.3 cm LA Ao Ratio MM 0.9 MV E Point Septal Separation 1.1 cm DOPPLER AV Peak Velocity 117.3 cm/s LVOT Peak Velocity 99.0 cm/s AV Area Cont Eq vti 2.3 cm squared AV Area Cont Eq pk 2.8 cm squared MV Area PHT 4.5 cm squared Mitral E to A Ratio 0.9 MV E' Velocity 36.0 cm/s Mitral E to MV E' Ratio 7.8 Mitral E to LV E' Lateral Ratio 6.1 Mitral E to LV E' Septal Ratio 11.1 TR Peak Velocity 121.0 cm/s TR Peak Gradient 5.9 mmHg TV Peak E Velocity 90.0 cm/s Right Atrial Pressure 3.0 mmHg Pulmonary Artery Systolic Pressu 8.9 mmHg RV Acceleration Time 0.2 s FINDINGS Left Ventricle Left ventricle is normal in size. LV systolic function is moderately reduced with EF of 35 to 40%. Moderate global hypokinesis. Moderate to severe hypokinesis of apical, mid to apical inferiolateral, inferoseptal soares. Right Ventricle Normal in size and function Right Atrium Normal in size Left Atrium Normal in size Mitral Valve Structurally normal mitral valve. Aortic Valve Structurally normal aortic valve. Mild aortic regurgitation. No significant stenosis. Tricuspid Valve Mild tricuspid regurgitation. Insufficient TR jet to calculate RVSP. Pulmonic Valve Not well visualized Pericardium Normal Aorta Normal in size IVC Appears to be normal CONCLUSIONS LV systolic function is moderately reduced with EF of 35 to 40%. Above-mentioned regional wall motion abnormalities. Mild aortic regurgitation Mild tricuspid regurgitation Compared to prior echocardiogram from 2021, LV systolic function has improved slightly and EF is 35-40% Ariel Forrest MD (Electronically Signed) Final Date: 28 September 2023 12:13 S
== END 2023-09-28 07:01 | disposition home or self-care (01) ==
LOC: RAD 07:00
PROVIDERS: PCP Family Medicine; Visit Provider Family Medicine
DX: I25.5 Ischemic cardiomyopathy (principal); R06.09 Other forms of dyspnea; I08.3 Combined rheumatic disorders of mitral, aortic and tricuspid valves
CPT/HCPCS: 93306

== ENCOUNTER 2023-10-02 14:00 | Outpatient (CLI) | payer MEDICARE, SELFPAY | END 2023-10-02 14:01 | disposition home or self-care (01) | LOC: SLEEP 10-03 10:27 | PROVIDERS: PCP Family Medicine; Visit Provider Family Medicine | DX: G47.10 Hypersomnia, unspecified (principal) | CPT/HCPCS: G0399 ==

== ENCOUNTER → 2023-11-05 09:17 | Outpatient (BNVA) | payer MEDICARE, SELFPAY | PROVIDERS: PCP Family Medicine; Visit Provider Family Medicine | DX: Z13.6 Encounter for screening for cardiovascular disorders (principal); I25.5 Ischemic cardiomyopathy; E78.2 Mixed hyperlipidemia; R35.1 Nocturia | CPT/HCPCS: 80053; 80061; 84153; 85025 ==

== ENCOUNTER → 2023-12-05 12:38 | Outpatient (BNVA) | payer MEDICARE, SELFPAY | PROVIDERS: PCP Family Medicine; Referring Provider Family Medicine; Visit Provider Internal Medicine Pulmonary Disease | DX: R06.02 Shortness of breath (principal); M41.80 Other forms of scoliosis, site unspecified | CPT/HCPCS: 36415; 71046; 82785; 86003; 99204 ==

== ENCOUNTER → 2023-12-17 14:42 | Outpatient (BNVA) | payer MEDICARE, SELFPAY | PROVIDERS: PCP Family Medicine; Visit Provider Internal Medicine | DX: I25.10 Atherosclerotic heart disease of native coronary artery without angina pectoris (principal); I25.5 Ischemic cardiomyopathy; I10 Essential (primary) hypertension; E78.2 Mixed hyperlipidemia; I25.2 Old myocardial infarction | CPT/HCPCS: 99214 ==

== ENCOUNTER → 2024-02-25 08:51 | Outpatient (BNVA) | payer MEDICARE, SELFPAY | PROVIDERS: PCP Family Medicine; Visit Provider Internal Medicine Pulmonary Disease | DX: J45.40 Moderate persistent asthma, uncomplicated (principal) | CPT/HCPCS: 99214 ==

== ENCOUNTER → 2024-06-18 14:41 | Outpatient (BNVA) | payer MEDICARE, SELFPAY | PROVIDERS: PCP Family Medicine; Visit Provider Internal Medicine | DX: I25.10 Atherosclerotic heart disease of native coronary artery without angina pectoris (principal); I25.5 Ischemic cardiomyopathy; I10 Essential (primary) hypertension; E78.2 Mixed hyperlipidemia | CPT/HCPCS: 99213 ==

== ENCOUNTER → 2024-07-07 11:28 | Outpatient (BNVA) | payer MEDICARE, SELFPAY | PROVIDERS: PCP Family Medicine; Visit Provider Family Medicine | DX: R35.0 Frequency of micturition (principal); R35.1 Nocturia | CPT/HCPCS: 81000; 87086 ==

== ENCOUNTER → 2024-11-06 11:03 | Outpatient (BNVA) | payer MEDICARE, SELFPAY | PROVIDERS: PCP Family Medicine; Visit Provider Family Medicine | DX: I10 Essential (primary) hypertension (principal); E78.2 Mixed hyperlipidemia; I25.10 Atherosclerotic heart disease of native coronary artery without angina pectoris | CPT/HCPCS: 80053; 80061 ==

== ENCOUNTER → 2024-12-24 12:04 | Outpatient (BNVA) | payer MEDICARE, SELFPAY | PROVIDERS: PCP Family Medicine; Visit Provider Internal Medicine | DX: I25.10 Atherosclerotic heart disease of native coronary artery without angina pectoris (principal); I21.9 Acute myocardial infarction, unspecified; I25.5 Ischemic cardiomyopathy; I10 Essential (primary) hypertension; E78.2 Mixed hyperlipidemia | CPT/HCPCS: 99213 ==

== ENCOUNTER → 2025-04-16 11:29 | Outpatient (BNVA) | payer MEDICARE, SELFPAY | PROVIDERS: PCP Family Medicine; Visit Provider Family Medicine | DX: I10 Essential (primary) hypertension (principal); J45.40 Moderate persistent asthma, uncomplicated; I25.5 Ischemic cardiomyopathy; I25.10 Atherosclerotic heart disease of native coronary artery without angina pectoris; E78.2 Mixed hyperlipidemia | CPT/HCPCS: 80053; 84443; 85025 ==

== ENCOUNTER 2025-05-25 21:09 | Emergency (ER) | payer MEDICARE, SELFPAY ==
--- NOTE | 2025-05-25 21:26 | ECG_ITS ---
[facility] 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 Measurements Intervals [place] Rate: 76 P: 71 MO: 189 QRS: -60 QRSD: 95 T: 68 QT: 427 QTc: 480 Interpretive Statements SINUS RHYTHM WITH OCCASIONAL VENTRICULAR PREMATURE COMPLEXES POSSIBLE ANTERIOR MYOCARDIAL INFARCTION , OF INDETERMINATE AGE [30 ms Q WAVE IN V3/V4, OR R < 0.2 mV IN V4] INFERIOR MYOCARDIAL INFARCTION , PROBABLY OLD [40+ ms Q WAVE AND/OR ST/T ABNORMALITY IN II/aVF] Compared to ECG 11/01/2021 05:54:25 Ventricular premature complex(es) now present Myocardial infarct finding now present Sinus bradycardia no longer present Left-axis deviation no longer present Electronically Signed On 05-26-2025 21:43:16 CDT by Racquel Alcantar M.D. [id number] [id number]
[2025-05-25 21:28] VITALS: BP 112/61; PULSE 74; RESP 20; TEMP 36.7; O2SAT 95; BMI 24.6
--- NOTE | 2025-05-25 21:47 | XRR_ITS ---
PROCEDURE INFORMATION: Exam: XR Chest Exam date and time: 05/25/2025 11:15 PM Age: 74 years old Clinical indication: Dyspnea; Prior surgery; Surgery date: 6+ months; Surgery type: Coronary stent TECHNIQUE: Imaging protocol: Radiologic exam of the chest. Views: 1 view. COMPARISON: CR XR chest 2V* [id number] 12/05/2023 12:43 PM FINDINGS: Lungs: Unremarkable. No consolidation. Pleural spaces: Unremarkable. No pleural effusion. No pneumothorax. Heart/Mediastinum: Left hilar calcified lymph nodes. Coronary stent. Bones/joints: Unremarkable. XR/XR chest 1V portable [id number] IMPRESSION: No acute findings.
[2025-05-25 22:13] LABS: Hematocrit 40.4 % (37-53); Hemoglobin 13.30 g/dL (11.27-16.99); Mean Corpuscular HGB Conc 32.9 g/dL (30-55); Mean Corpuscular Hemoglobin 29.4 pg (27-33); Mean Corpuscular Volume 89.2 fl (82-101); Nucleated Red Blood Cells % 0 %; Platelet Count 175 10^3/cmm (157-399); Red Blood Count 4.53 10^6/uL (3.85-5.65); White Blood Count 8.16 10^3/uL (3.29-11.43)
[2025-05-25 22:32] LABS: Troponin(5th) Baseline 22 ng/L (0-15)
[2025-05-25 22:36] LABS: Alanine Aminotransferase 13 U/L (0-41); Albumin Level 4.1 g/dL (3.5-5.2); Alkaline Phosphatase 84 U/L (40-130); Anion Gap 14.9 (5-19); Aspartate Amino Transferase 15 U/L (0-40); Blood Urea Nitrogen 19 mg/dL (8-23); Calcium 8.6 mg/dL (8.5-10.5); Carbon Dioxide 24 mmol/L (22-29); Chloride 98 mmol/L (98-107); Creatinine Clr Calc Pharmacy 47.2243; Globulin 1.6 g/dL (1.3-4.6); Glucose 117 mg/dL (65-115); Osmolality Calculated 279 mOsm/kg (285-295); Potassium 3.9 mmol/L (3.5-5.1); Sodium 133 mmol/L (136-145); Total Protein 5.7 g/dL (6.6-8.7)
[2025-05-25 23:26] VITALS: BP 130/57; PULSE 72; O2SAT 96
--- NOTE | 2025-05-25 23:38 | W.ED.SOB ---
HPI - SOB/Dyspnea General: Chief Complaint: Shortness of Breath/Dyspnea Stated Complaint: Low BP, Fatigue, SOB. Time Seen by Provider: 05/25/25 21:47 History of Present Illness: HPI Narrative: 74-year-old male presents emergency room complaining of fatigue shortness of breath and some low blood pressure. He has a history of hypertension he is on antihypertensive medications. No recent medication changes. Patient does have a history of asthma has been having a little bit more difficulty with his asthma lately he has a dry nonproductive cough he does usually use Advair and albuterol nebs at home. He is noted clear variation in his blood pressure at home but is normotensive now. He is not having any chest pain has not had a productive cough or hemoptysis Associated symptoms: Deny abdominal pain, chest pain or fever(s) Related Data Home Medications ?Medication ?Instructions ?Recorded ?Confirmed aspirin 81 mg tablet,delayed 81 mg PO DAILY 12/01/19 04/16/25 release (Adult Aspirin Regimen) Vit. D3 PO 04/16/23 04/16/25 calcium PO 04/16/23 04/16/25 Previous Rx's ?Medication ?Instructions ?Recorded nitroglycerin 0.4 mg sublingual 0.4 mg sublingual Q5M PRN chest 11/01/21 tablet pain #30 tabs albuterol sulfate 2.5 mg/3 mL See Rx Instructions .Route 11/05/23 (0.083 %) solution for nebulization .COMPLEX #180 mL albuterol sulfate 90 mcg/actuation See Rx Instructions .Route 03/02/25 aerosol inhaler (Ventolin HFA) .COMPLEX #18 grams losartan 25 mg tablet See Rx Instructions .Route 03/03/25 .COMPLEX #90 tabs atorvastatin 40 mg tablet 40 mg PO .AT BEDTIME #90 tabs 03/31/25 fluticasone propionate 230 2 puff inhalation BID #12 grams 04/16/25 mcg-salmeterol 21 mcg/actuation HFA inhaler (Advair HFA) metoprolol succinate 50 mg See Rx Instructions .Route 05/18/25 tablet,extended release 24 hr .COMPLEX #90 tabs methylprednisolone 4 mg tablets in See Rx Instructions PO .COMPLEX 05/26/25 a dose pack (Medrol (Noah)) #21 ea metoprolol succinate 50 mg 25 mg (1/2 x 50 mg) PO 1XD #90 tabs 05/26/25 tablet,extended release 24 hr Allergies Allergy/AdvReac Type Severity Reaction Status Date / Time Sulfa (Sulfonamide Allergy unk Verified 04/16/25 10:29 Antibiotics) tamsulosin Allergy dizzy Verified 04/16/25 10:29 Review of Systems Const: Denies: fever(s) or chills Card: Denies: chest pain Resp: Reports: dyspnea GI: Denies: abdominal pain : Denies: dysuria, urinary frequency or urinary urgency Musc: Denies: neck pain or back pain Skin/Breast: Denies: rash PFSH ED PFSH: Medical History Coronary artery disease BPH associated with nocturia Asthma Ischemic cardiomyopathy Myocardial infarction HTN (hypertension) Hyperlipidemia Surgical History History of Mohs micrographic surgery for skin cancer Hx of umbilical hernia repair H/O hernia repair R inguinal H/O vasectomy History of heart artery stent one stent Family History Grandfather CAD (coronary artery disease) Diabetes Hypertension Family/Other Cancer pancreatic Father Family history of premature coronary artery disease Lung disease Hypertension Grandmother Hypertension Lung disease Stroke Brother CAD (coronary artery disease) Sister Stroke Other Hyperlipidemia Denies family history of Clotting disorder Dementia Psychiatric illness Chronic kidney disease (CKD) Suicide Anesthesia complication Bleeding disorder Social History Smoking and tobacco/nicotine status: never used tobacco/nicotine Alcohol intake: former Former alcohol use details: never heavy; only prn Substance/Drug Use: never Household members: spouse Marital status: Number of children: 2 Highest education level completed: High School Graduate Current occupational status: retired 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; 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 [place] Physical Exam Const: GENERAL APPEARANCE: cooperative ORIENTATION/CONSCIOUSNESS: Yes awake, Yes oriented to person, Yes oriented to place and Yes oriented to time HENMT: COMMON NORMALS: normocephalic, atraumatic and hearing grossly normal bilaterally HEAD & SCALP: normocephalic and atraumatic Resp: COMMON NORMALS: normal respiratory effort, No retractions, No use of accessory muscles and clear to auscultation bilaterally AUSCULTATION: clear to auscultation bilaterally Cardio: COMMON NORMALS: regular rate, regular rhythm and No murmurs present (Cardio) RATE: regular rate RHYTHM: regular rhythm GI: COMMON NORMALS: Soft to palpation and No hepatosplenomegaly present AUSCULTATION: Yes normoactive bowel sounds PALPATION: Yes Soft to palpation, No Tenderness to palpation present (GI), No Guarding due to palpation present (GI) and Yes No hepatosplenomegaly present Extremity: COMMON NORMALS: normal to inspection, capillary refill normal, no clubbing, cyanosis or edema, no calf tenderness and no pedal edema Neuro: SENSORIUM/ORIENTATION: Yes oriented to person, Yes oriented to place and Yes oriented to time Skin: COMMON NORMALS: no rashes or lesions noted GENERAL SKIN EXAM: no rashes or lesions noted Course Vital Signs: Vital signs: Vital Signs Temperature 98.0 F 05/25/25 21:28 Pulse Rate 70 05/26/25 01:30 Respiratory Rate 18 05/26/25 00:51 Blood Pressure 115/60 05/26/25 01:30 Pulse Oximetry 93 05/26/25 01:30 Oxygen Delivery Me thod Room Air 05/26/25 01:29 MDM - SOB/Dyspnea Medical Decision Making Laboratory tests unremarkable. Delta troponin +1.76 patient had no further symptoms he did have significant improvement after nebulizer treatment. Blood pressure did continue to show some fluctuations but was mostly normotensive did not require any interventions. Discharge patient home with steroid taper continue nebulizers. Encouraged him to follow-up with his primary care doctor regarding his blood pressure return if has further problems Medical Records I reviewed the patient's medical records. Lab Data I reviewed the patient's lab results. 05/25/25 22:06 05/25/25 22:06 Labs/Radiology: Radiology Impressions Chest X-Ray 05/25/25 21:47 IMPRESSION: No acute findings. Laboratory Results WBC 8.16 10^3/uL (3.29-11.43) 05/25/25 22:06 RBC 4.53 10^6/uL (3.85-5.65) 05/25/25 22:06 Hgb 13.30 g/dL (11.27-16.99) 05/25/25 22:06 Hct 40.4 % (37-53) 05/25/25 22:06 MCV 89.2 fl (82-101) 05/25/25 22:06 MCH 29.4 pg (27-33) 05/25/25 22:06 MCHC 32.9 g/dL (30-55) 05/25/25 22:06 RDW 13.5 % (12.1-15.1) 05/25/25 22:06 Plt Count 175 10^3/cmm (157-399) 05/25/25 22:06 MPV 9.6 fL (7.4-10.4) 05/25/25 22:06 Neut % (Auto) 56.4 % 05/25/25 22:06 Lymph % (Auto) 25.2 % 05/25/25 22:06 [place] % (Auto) 10.2 % 05/25/25 22:06 Eos % (Auto) 7.2 % 05/25/25 22:06 Baso % (Auto) 0.5 % 05/25/25 22:06 Neut # (Auto) 4.60 10^3/uL (1.8-7.7) 05/25/25 22:06 Lymph # (Auto) 2.1 10^3/uL (0.8-4.8) 05/25/25 22:06 [place] # (Auto) 0.8 10^3/uL (0.2-0.9) 05/25/25 22:06 Eos # (Auto) 0.6 10^3/uL (0.0-0.8) 05/25/25 22:06 Baso # (Auto) 0.0 10^3/uL (0.0-0.1) 05/25/25 22:06 Nucleated RBC % (auto) 0 % 05/25/25 22:06 Nucleated RBCs # 0.0 /100WBC 05/25/25 22:06 Sodium 133 mmol/L (136-145) L 05/25/25 22:06 Potassium 3.9 mmol/L (3.5-5.1) 05/25/25 22:06 Chloride 98 mmol/L (98-107) 05/25/25 22:06 Carbon Dioxide 24 mmol/L (22-29) 05/25/25 22:06 Anion Gap 14.9 (5-19) 05/25/25 22:06 BUN 19 mg/dL (8-23) 05/25/25 22:06 Creatinine 1.2 mg/dL (0.7-1.2) 05/25/25 22:06 GFR Calculation Not Reportable 05/25/25 22:06 Glucose 117 mg/dL (65-115) H 05/25/25 22:06 Calculated Osmolality 279 mOsm/kg (285-295) L 05/25/25 22:06 Calcium 8.6 mg/dL (8.5-10.5) 05/25/25 22:06 Total Bilirubin 0.5 mg/dL (0.15-1.2) 05/25/25 22:06 AST 15 U/L (0-40) 05/25/25 22:06 ALT 13 U/L (0-41) 05/25/25 22:06 Alkaline Phosphatase 84 U/L (40-130) 05/25/25 22:06 Troponin T Baseline 22 ng/L (0-15) H 05/25/25 22:06 Troponin T 120 Minute 23.76 ng/L (0-15) H 05/25/25 23:54 Delta Troponin T 1.76 ABS# (0-10) 05/25/25 23:54 Total Protein 5.7 g/dL (6.6-8.7) L 05/25/25 22:06 Albumin 4.1 g/dL (3.5-5.2) 05/25/25 22:06 Globulin 1.6 g/dL (1.3-4.6) 05/25/25 22:06 Urine Color Yellow (Yellow) 05/25/25 23:44 Urine Appearance Clear (CLEAR) 05/25/25 23:44 Urine pH 5.5 (5-7) 05/25/25 23:44 Ur Specific Burns 1.007 (1.005-1.030) 05/25/25 23:44 Urine Protein Negative (Negative) 05/25/25 23:44 Urine Glucose (UA) Negative (Normal) 05/25/25 23:44 Urine Ketones Negative (Negative) 05/25/25 23:44 Urine Blood Trace (Negative) A 05/25/25 23:44 Urine Nitrate Negative (Negative) 05/25/25 23:44 Urine Bilirubin Negative (Negative) 05/25/25 23:44 Urine Urobilinogen 0.2 mg/dL (Negative) 05/25/25 23:44 Ur Leukocyte Esterase Negative (Negative) 05/25/25 23:44 Urine RBC 0-2 /hpf (0-2) 05/25/25 23:44 Urine WBC 0-5 /hpf (0-5) 05/25/25 23:44 Ur Squamous Epith Cells 0-5 /hpf (0-5) 05/25/25 23:44 Amorphous Sediment Not Reportable 05/25/25 23:44 Urine Bacteria None seen /hpf (NONE) 05/25/25 23:44 Hyaline Casts 0-4 /lpf H 05/25/25 23:44 All radiology interpretation(s) finalized by discharge EKG Data EKG 1: Interpretation: EKG 05/25/20252125 sinus rhythm with PVCs no acute ST elevation. Inferior Q waves now present. Rate of 76 NM interval 189 QTc 480. Compared to EKG 11/01/2021 Discharge Plan Discharge Patient Disposition: Home Clinical Impression: HTN (hypertension) Qualifiers: Hypertension type: primary hypertension Qualified Code(s): I10 - Essential (primary) hypertension Asthma exacerbation Qualifiers: Asthma severity: moderate Asthma persistence: persistent Qualified Code(s): J45.41 - Moderate persistent asthma with (acute) exacerbation Condition: Stable Prescriptions: New methylprednisolone [Medrol (Noah)] 4 mg tablets,dose pack See Rx Instructions .ROUTE .COMPLEX Qty: 21 0RF Rx Instructions: orally per package directions Continued metoprolol succinate 50 mg tablet extended release 24 hr See Rx Instructions .ROUTE .COMPLEX Qty: 90 3RF Dose Instruction: TAKE 1 TABLET BY MOUTH EVERY DAY Rx Instructions: TAKE 1 TABLET BY MOUTH EVERY DAY Changed metoprolol succinate 50 mg tablet extended release 24 hr 25 mg PO 1XD Qty: 90 3RF Dose Instruction: TAKE 1 TABLET BY MOUTH EVERY DAY Rx Instructions: TAKE 1 TABLET BY MOUTH EVERY DAY No Action aspirin [Adult Aspirin Regimen] 81 mg tablet,delayed release (DR/EC) 81 mg PO DAILY fluticasone propion-salmeterol [Advair HFA] 230-21 mcg/actuation HFA aerosol inhaler 2 puff inhalation BID Qty: 12 11RF Vit. D3 PO calcium PO albuterol sulfate 2.5 mg /3 mL (0.083 %) solution for nebulization See Rx Instructions .ROUTE .COMPLEX Qty: 180 3RF Dose Instruction: USE 1 VIAL VIA NEBULIZER EVERY 4 HOURS NEEDED FOR SHORTNESS OF BREATH OR WHEEZING Rx Instructions: USE 1 VIAL VIA NEBULIZER EVERY 4 HOURS NEEDED FOR SHORTNESS OF BREATH OR WHEEZING albuterol sulfate [Ventolin HFA] 90 mcg/actuation HFA aerosol inhaler See Rx Instructions .ROUTE .COMPLEX Qty: 18 2RF Dose Instruction: INHALE TWO PUFFS EVERY 6 HOURS NEEDED FOR SHORTNESS OF BREATH or wheezing Rx Instructions: INHALE TWO PUFFS EVERY 6 HOURS NEEDED FOR SHORTNESS OF BREATH or wheezing losartan 25 mg tablet See Rx Instructions .ROUTE .COMPLEX Qty: 90 3RF Dose Instruction: TAKE 1 TABLET BY MOUTH EVERY DAY Rx Instructions: TAKE 1 TABLET BY MOUTH EVERY DAY atorvastatin 40 mg tablet 40 mg PO .AT BEDTIME Qty: 90 3RF nitroglycerin 0.4 mg tablet, sublingual 0.4 mg sublingual Q5M PRN (Reason: chest pain) Qty: 30 0RF Rx Instructions: do not exceed 3 doses per episode Discharge Orders: Discharge ED (Routine); Ordered 05/26/25 Ordered By: Floyd Li Referrals: Jayashree Colmenares MD [Primary Care Provider, Family Practice] Discharge Diet: Usual diet Discharge Activity: Resume usual activity Patient Instructions: Opioid Safety, Pain Management, Patient Portal & Dominic Instructions Activity Restrictions/Additional Instructions: Thank you for choosing [facility] for your healthcare needs today. It is very important that you follow up as instructed or that you return to the Emergency Department should you have concerns or if your condition changes or worsens in any way. Emergency department visits are focused on emergent conditions, in some cases you may require further evaluation on an outpatient basis. You were seen in the emergency room with complaints of fluctuations your blood pressure. Recommend decreasing metoprolol to 25 mg once daily entheses half tablet). Continue losartan. Should recheck your blood pressure primary care doctor within the week. You did have slight wheezing when you were in the emergency room. Recommend this steroid taper. Continue to use your albuterol as needed and follow-up with your primary care doctor within the week regarding both your asthma and your hypertension. (Please note that included in your discharge packet is information concerning opioid safety and pain management. This information is given to all patients were discharged from the ER regardless of their discharge diagnosis or the medicines they usually take or are prescribed.) Print Language: Croatian Coding Level of Care Code ED [employer] Assistant Manager for Josephine Walton
--- NOTE | 2025-05-25 23:47 | ECG_ITS ---
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 Measurements Intervals [place] Rate: 76 P: 71 TN: 189 QRS: -60 QRSD: 95 T: 68 QT: 427 QTc: 480 Interpretive Statements SINUS RHYTHM WITH OCCASIONAL VENTRICULAR PREMATURE COMPLEXES POSSIBLE ANTERIOR MYOCARDIAL INFARCTION , OF INDETERMINATE AGE [30 ms Q WAVE IN V3/V4, OR R < 0.2 mV IN V4] INFERIOR MYOCARDIAL INFARCTION , PROBABLY OLD [40+ ms Q WAVE AND/OR ST/T ABNORMALITY IN II/aVF] Compared to ECG 11/01/2021 05:54:25 Ventricular premature complex(es) now present Myocardial infarct finding now present Sinus bradycardia no longer present Left-axis deviation no longer present Electronically Signed On 05-26-2025 21:58:40 CDT by Racquel Alcantar M.D. [email or web address] [id number]
[2025-05-25 23:55] LABS: Glucose Urine UA Negative (Normal); Nitrate Urine Negative (Negative); Specific Gravity, Urine 1.007 (1.005-1.030)
[2025-05-26] LABS: Add Urine Microscopic? YES
[2025-05-26 00:17] LABS: Troponin 5 2HR 23.76 ng/L (0-15); Troponin 5 2HR Delta 1.76 ABS# (0-10)
[2025-05-26 00:51] VITALS: PULSE 69; RESP 18; O2SAT 95
[2025-05-26 00:56] VITALS: BP 115/56; PULSE 69; O2SAT 94
[2025-05-26 01:29] VITALS: BP 115/58; PULSE 69; O2SAT 94
[2025-05-26 01:30] VITALS: BP 115/60; PULSE 70; O2SAT 93
== END 2025-05-26 01:42 | disposition home or self-care (01) ==
PROVIDERS: Emergency Provider Family Medicine; PCP Family Medicine
DX: J45.41 Moderate persistent asthma with (acute) exacerbation (principal); I10 Essential (primary) hypertension; E78.5 Hyperlipidemia, unspecified; I25.10 Atherosclerotic heart disease of native coronary artery without angina pectoris
CPT/HCPCS: 36415; 71045; 80053; 81001; 84484; 85025; 93005; 94640; 99285; J9999

== ENCOUNTER → 2025-07-01 15:01 | Outpatient (BNVA) | payer MEDICARE, SELFPAY | PROVIDERS: PCP Family Medicine; Visit Provider Internal Medicine | DX: I25.10 Atherosclerotic heart disease of native coronary artery without angina pectoris (principal); I25.5 Ischemic cardiomyopathy; I10 Essential (primary) hypertension; E78.2 Mixed hyperlipidemia; I25.2 Old myocardial infarction | CPT/HCPCS: 99213 ==